=== PATIENT | female | born 1985 | race Caucasian/White ===

== ENCOUNTER → 2023-08-26 | Outpatient (CLI) | payer BC ==
[2023-08-26 21:15] LABS: Basophils # (A) 0.08 X 10*3/uL (0.00-0.10); Basophils % (A) 0.7 %; Eosinophils # (A) 0.78 X 10*3/uL (0.04-0.35); Eosinophils % (A) 6.8 %; HCT 33.2 % (37.2-46.3); HGB 10.1 g/dL (12.0-15.0); Lymphocytes # (A) 4.79 X 10*3/uL (0.90-5.00); Lymphocytes % (A) 41.8 %; MCH 29.2 pg (27.0-32.0); MCHC 30.4 g/dL (32.0-37.0); Mean Platelet Volume 10.3 FL (9.5-12.2); Monocytes # (A) 0.99 X 10*3/uL (0.20-1.00); Monocytes % (A) 8.6 %; NRBC Per 100 WBC 0 X 10*3/uL (0.00-0.01); Neutrophils # (A) 4.77 X 10*3/uL (1.80-7.70); Neutrophils % (A) 41.8 %; Platelet Count 439 X 10*3/uL (140-440); RBC 3.46 X 10*6/uL (4.10-5.20); RDW 13.8 % (11.5-14.5); WBC 11.45 X 10*3/uL (4.50-10.00)
== END | disposition home or self-care (01) ==
LOC: LABPAT 15:16
PROVIDERS: ATTEND Obstetrics & Gynecology
DX: Z01.812 Encounter for preprocedural laboratory examination (principal); N84.0 Polyp of corpus uteri
CPT/HCPCS: 85025